=== PATIENT | female | born 1970 | race Caucasian/White ===

== ENCOUNTER 2017-10-24 15:30 | Outpatient (CLI) | END 2017-10-24 15:31 | disposition home or self-care (01) | LOC: RHC-LAB 15:30 | PROVIDERS: ATTEND Nurse Practitioner Family | DX: Z00.00 Encounter for general adult medical examination without abnormal findings (principal); G25.81 Restless legs syndrome; F41.8 Other specified anxiety disorders | CPT/HCPCS: 36415; 80053; 80061; 84443; 85025 ==

== ENCOUNTER 2018-01-16 14:30 | Outpatient (CLI) | END 2018-01-16 14:31 | disposition home or self-care (01) | LOC: RAD 14:30 | PROVIDERS: ATTEND Nurse Practitioner Family | DX: Z12.31 Encounter for screening mammogram for malignant neoplasm of breast (principal); E03.9 Hypothyroidism, unspecified; E78.5 Hyperlipidemia, unspecified | CPT/HCPCS: 36415; 77067; 80053; 80061; 84443 ==

== ENCOUNTER 2018-01-25 08:43 | Outpatient (CLI) ==
--- NOTE | 2018-01-25 09:15 | MAMMO ---
EXAM: Right digital diagnostic mammogram (2-D and 3-D) History: Right breast asymmetry. Comparison: Screening mammogram 01/16/2018 Findings: Right breast density is scattered. Additional views of the right breast with tomosynthesi s confirmed a 3 o'clock right breast asymmetry. No suspicious microcalcifications. Impression: Indeterminate right breast 3 o'clock asymmetry. Recommend further evaluation with ultra sound. BIRADS 0
--- NOTE | 2018-01-25 10:04 | US ---
EXAM: Right breast ultrasound. History: Right breast mass. Comparison: Right diagnostic mammogram 01/25/2018 Technique: Multiple sonographic images through the right breast were obtained. Color duplex Doppler was used to interrogate vascular flow. Findings: No masses, cysts or fluid collections are identified. Impression: No sonographic evidence of malignancy. Recommend return to routine screening mammograph y schedule. BIRADS 2
== END 2018-01-25 08:44 | disposition home or self-care (01) ==
LOC: RAD 08:43
PROVIDERS: ATTEND Nurse Practitioner Family
DX: N64.89 Other specified disorders of breast (principal)

== ENCOUNTER 2018-02-06 09:14 | Outpatient (CLI) ==
--- NOTE | 2018-02-06 09:50 | US ---
EXAM: Thyroid ultrasound History: Enlarged thyroid. Technique: Multiple sonographic images through the thyroid gland were obtained. Color duplex Dopple r was used to interrogate vascular flow. Findings: The right lobe of the thyroid measures 7.3 cm x 2.9 cm x 3.0 cm and demonstrates heterogeneous echote xture. 0.4 cm hyperechoic nodule within the superior pole is probably benign. The thyroid isthmus measures 0.8 cm in thickness. The left lobe of the thyroid measures 6.8 cm x 2.0 cm x 1.8 cm and demonstrates heterogeneous echotex ture. No discrete nodule identified. No extrathyroidal masses are identified. Thyroid gland is slightly hypervascular. Impression: 1. Enlarged slightly hypervascular thyroid gland. Differential diagnosis would include thyroiditis or Graves disease. 2. Tiny sub-centimeter benign appearing nodule within the superior pole of the right thyroid.
== END 2018-02-06 09:15 | disposition home or self-care (01) ==
LOC: RAD 09:14
PROVIDERS: ATTEND Nurse Practitioner Family
DX: F45.8 Other somatoform disorders (principal)